=== PATIENT | female | born 1945 | race Caucasian/White ===

== ENCOUNTER 2018-01-27 15:33 | Observation (INO) | payer OTHER ==
[~2018-01-27] VITALS: Ht 165.1 cm; Wt 93.2 kg
[~2018-01-27 15:33] MED LIST: AUGMENTIN 875875 MG PO; COZAAR 25 MG TA25 M1 PO; DEPAKOTE ER500 MG PO; LEVAQUIN 500 M500 M2 PO; LOSARTAN-HCTZ1 EAC1 PO; OMEPRAZOLE40 MG PO; PURELAX17 GM PO; VIMPAT50 MG PO; ZOFRAN4 MG PO
[2018-01-27 15:35] VITALS: BP 144/83
[2018-01-27] MEDS ORDERED: NORVASC5 MG PO (16:11)
[2018-01-27] MEDS ORDERED: LUTEIN10 MG PO (16:11)
[2018-01-27] MEDS ORDERED: VITAMIN D1000 UNI1 PO (16:12)
[2018-01-27] MEDS ORDERED: MAGOX 400400 MG PO (16:12)
[2018-01-27] MEDS ORDERED: CALCIUM 600 +1 EAC1 PO (16:12)
[2018-01-27] MEDS ORDERED: CENTRUM SILVER1 EAC4 PO (16:13)
[2018-01-27 16:18] LABS: ABSOLUTE BASOPHILS 0.1 thou/uL (0.0-0.2); ABSOLUTE EOSINOPHILS 0.1 thou/uL (0.0-0.7); ABSOLUTE LYMPHOCYTES 3.8 thou/uL (0.8-5.3); ABSOLUTE MONOCYTES 0.8 thou/uL (0.0-1.2); ABSOLUTE NEUTROPHILS 4.4 thou/uL (1.6-8.1); BASOPHILS 0.7 %; EOSINOPHILS 1.4 %; HEMOGLOBIN 13.7 gm/dL (12.0-15.0); LYMPHOCYTES 41.6 %; MCH 30.4 pg (26.0-34.0); MCHC 33.4 g/dL (28.0-37.0); MONOCYTES 8.7 %; MPV 7.4 fl. (7.2-11.1); NUCLEATED RBCS 0 /100WBC; PLATELET COUNT* 223 thou/uL (150-400); POLYS 47.6 %; RDW-CV 14.7 % (10.5-14.5); WBC 9.2 thou/uL (4.0-11.0)
[2018-01-27 16:41] LABS: ANION GAP 9 mmol/L (7-16); BUN 17 mg/dL (7-18); CALCIUM 9.7 mg/dL (8.5-10.1); CHLORIDE 103 mmol/L (98-107); CO2 27 mmol/L (21-32); CREATININE 0.8 mg/dL (0.6-1.3); GLUCOSE 107 mg/dL (70-99); POTASSIUM 3.9 mmol/L (3.5-5.1); SODIUM 139 mmol/L (136-145)
[2018-01-27 16:50] LABS: ALBUMIN 3.8 g/dL (3.4-5.0); ALKALINE PHOSPHATASE 81 U/L (46-116); CK-MB MASS 0.7 ng/mL (<0.5-3.6); LIPASE 115 U/L (73-393); NT-PRO BRAIN NAT PEPTIDE 14 pg/mL (<300); SGOT 24 U/L (15-37); SGPT 35 U/L (30-65); TOTAL BILIRUBIN 0.2 mg/dL (<0.1-1.0); TROPONIN-I LEVEL <0.06 ng/mL (<0.06)
[2018-01-27 17:00] LABS: APTT 25.8 Seconds (25.0-31.3)
[2018-01-27 17:35] VITALS: BP 158/91
[2018-01-27 17:57] VITALS: BP 127/81
--- NOTE | 2018-01-27 18:57 | NUR ---
RECEIVED REPORT FROM RICARDO IN ER. PT ARRIVED TO TELE AT 1735. PT A&OX4. VSS. O2 SAT 97% ON RA. 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 PT ORIENTED TO ROOM, BED AND CALL LIGHT. PT DENIES CHEST PAIN AT THIS TIME. PT TO HAVE STRESS ECHO TOMORROW. PT ABLE TO EAT DINNER, PT EATING AND DRINKING WITHOUT ISSUE. PT DENIES PAIN OR DISCOMFORT. PT UP AD GIA IN ROOM. AT BEDSIDE. LOW FALL RISK PRECAUTIONS IN PLACE. CALL LIGHT IS WITHIN REACH, HOURLY ROUNDING PERFORMED. NOC NURSE TO COMPLETE ADMISSION HISTORY AND ASSESSMENT. ALL NEEDS MET AT THIS TIME. WCTM FOR DURATION OF SHIFT.
[2018-01-27] MEDS ORDERED: MIRALAX17 GM PO (19:52)
[2018-01-27 20:49] VITALS: BP 122/83
[2018-01-28] VITALS: BP 119/88
[2018-01-28 04:00] VITALS: BP 135/81
[2018-01-28 05:49] LABS: HEMATOCRIT 40.7 % (37.0-47.0); HEMOGLOBIN 13.6 gm/dL (12.0-15.0); MCH 30.3 pg (26.0-34.0); MCHC 33.6 g/dL (28.0-37.0); MCV 90.4 fL (80.0-100.0); MPV 7.8 fl. (7.2-11.1); RBC 4.5 mil/uL (4.20-5.00); RDW-CV 14.8 % (10.5-14.5); WBC 9.1 thou/uL (4.0-11.0)
[2018-01-28 06:06] LABS: ALBUMIN 3.6 g/dL (3.4-5.0); CALCIUM 9.6 mg/dL (8.5-10.1); CREATININE 0.8 mg/dL (0.6-1.3); MAGNESIUM 2.2 mg/dL (1.8-2.4); TOTAL BILIRUBIN 0.3 mg/dL (<0.1-1.0); TOTAL PROTEIN 6.6 g/dL (6.4-8.2)
[2018-01-28 08:00] VITALS: BP 136/74
--- NOTE | 2018-01-28 08:28 | NUR ---
PT IS ABLE TO COMMUNICATE HER NEEDS TO STAFF EFFECTIVELY. SHE HAS DENIED ANY REOCCURANCE OF CHEST PAIN UP TO THIS TIME, ADDITIONALLY, SHE HAS DENIED ANY PAIN UP TO THIS TIME. SHE HAS BEEN NPO SINCE MIDNIGHT FOR A POSSIBLE STRESS ECHO LATER TODAY. POSSIBLE DISCHARGE TODAY PENDING RESULTS OF AFOREMENTIONED TESTING RESULTS.
--- NOTE | 2018-01-28 09:00 | NUR ---
RECEIVED REPORT. ASSUMED CARE OF PT AROUND O730. PT A&O X4. VSS. O2 SAT 96% ON RA. 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 AM ASSESSMENT AND VITALS COMPLETED CHARTED. IV INTACT AND SALINE LOCKED. PT MATTEO CHEST PAIN. PT REPORTS MILD TOOTH PAIN FROM A CAVITY THAT NEEDS REPAIR. REFUSED PAIN MEDICATION. PLAN IS FOR PT TO HAVE STRESS ECHO TODAY. PT COMMUNICATES UNDERSTANDING. PT NPO FOR STRESS ECHO. PT UP AD GIA IN THE ROOM. USING THE BATHROOM, VOIDING WITHOUT ISSUE, AT BEDSIDE. LOW FALL RISK PRECAUTIONS IN PLACE. CALL LIGHT IS WITHIN REACH, WCTM FOR DURATION OF SHIFT.
[2018-01-28 12:06] VITALS: BP 133/86
--- NOTE | 2018-01-28 12:25 | NUR ---
MET WITH PT TO DISCUSS HOME SITUATION/DC PLANNING. PT LIVES WITH SPOUSE. SHE IS INDEPENDENT AND ACTIVE, USES NO EQUIPMENT. PT DENIES ANY DC NEEDS AND HOPES TO GO HOME SOON
--- NOTE | 2018-01-28 13:41 | EXE ---
[place] [address] STRESS ECHOCARDIOGRAM Name: MARLEENMARCUS E Room: [address] IN [facility].#: [id number] Admission: 01/27/18 Attend Phys: Zak Kim Discharge: Date of : 49 Date of Service: 01/28/18 1340 Report #: [id number] THIS REPORT FOR: //name// APPROVED REPORT Study performed: 01/28/2018 11:14:29 Exam: Stress Echocardiogram Indication: Chest pain Patient Location: In-Patient Stress Nurse: Yenni Esparza RN Room #: [facility] Supervising Physician: Eligio Meeks MD Status: routine Ht: 5 ft 5 in HR: 88 bpm BP: 128/83 mmHg Rhythm: NSR Medical History Cardiac Risk Factors: Hyperlipidemia, HTN Procedure The patient underwent an Exercise Stress Test using the Paul Protocol. Blood pressure, heart rate, and EKG were monitored. An Echocardiogram was performed by biometric technician in four stages in quad fashion. At peak stress, four selected images were obtained and placed side by side with resting images for comparison. Stress Test Details Stress Test: Exercise stress testing was performed using a Paul protocol. HR Resting HR: 88 bpm Max Heart Rate (APMHR): 150 bpm Max HR Achieved: 160 bpm Target HR (85% APMHR): 127 bpm % of APMHR: 106 Recovery HR: 90 bpm HR response to stress: Normal HR response to stress BP Resting BP: 128/83 mmHg Max BP: 201/75 mmHg Recovery BP: 127/51 [place] [address] STRESS ECHOCARDIOGRAM Name: MARCUS HAWLEY Room: [address]#: [id number] Admission: 01/27/18 Attend Phys: Zak Kim Discharge: Date of : 49 Date of Service: 01/28/18 1340 Report #: [id number] Resting ECG: Sinus Rhythm Stress ECG: Sinus Rhythm ST Change: Upsloping ST depression Maximum ST Deviation: 0.5 mm Recovery ECG: Sinus Rhythm Recovery ST Change: Normal Clinical Reason for Termination: Maximal effort, Dyspnea Stress Symptoms: Dyspnea Exercise duration: 5 min sec Highest Stage Achieved: Stage 2: 2.0 mph at 12% grade. Exercise capacity: 5.85 METs Stress ECG Conclusion equivocal Pre-Stress Echo The resting Echocardiogram showed normal left ventricular contractility with an estimated Ejection Fraction of about 55-60%. aortic sclerosis, without stenosis or AI Post-Stress Echo LV chamber size decreases, LV ejection fraction increases, no new wall motion abnormalities are seen. Conclusion Clinical Response: Non-ischemic Exercise Capacity: Average Stress ECG Response: Equivocal Stress Echo Images: Non-ischemic Negative stress echo for ischemia, ECG findings likely are false positive Other Information Study Quality: Good <Conclusion> Negative stress echo for ischemia, ECG findings likely are false positive <ELECTRONICALLY SIGNED> By: Eligio Meeks MD, FACC 01/28/18 1340 39 39 Eligio Meeks MD, FACC /INF
--- NOTE | 2018-01-28 14:27 | EKG ---
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
--- NOTE | 2018-01-28 14:28 | EKG ---
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
[2018-01-28 15:14] VITALS: BP 133/86
--- NOTE | 2018-01-28 15:44 | NUR ---
PT COMPLETED STRESS TEST, RESULTS NEGATIVE. DISCHARGE ORDERS RECEIVED. DISCHARGE COMPLETED DOCUMENTED. DISCHARGE SUMMARY GIVEN TO PT. PT COMMUNICATES UNDERSTANDING OF DISCHARGE TEACHING. IV AND SPEED BELT SANDER REMOVED. VSS AT TIME OF DC. PT ABLE TO EAT LUNCH PRIOR TO DISCHARGE WITHOUT ISSUE. ALL BELONGINGS GATHERED AND SENT WITH THE PT. PT LEFT UNIT WITH NURSING STAFF, AMBULATING. PT LEFT HOSPITAL IN CAR WITH .
== END 2018-01-28 15:41 | disposition home or self-care (01) ==
LOC: M.ERS 15:33 → M.2W 16:47 → M.TBA-ER 16:47 → M.2W 16:47
PROVIDERS: Family Medicine; ADMIT Internal Medicine
DX: R07.89 Other chest pain (principal); I10 Essential (primary) hypertension; E78.5 Hyperlipidemia, unspecified; G40.909 Epilepsy, unspecified, not intractable, without status epilepticus; K21.9 Gastro-esophageal reflux disease without esophagitis; Z87.891 Personal history of nicotine dependence; Z98.890 Other specified postprocedural states